=== PATIENT | male | born 1960 | race Hispanic/Latino ===

== ENCOUNTER 2020-02-11 15:32 | Emergency (ER) | payer OTHER ==
[~2020-02-11] VITALS: Ht 160 cm; Wt 75.0 kg
[2020-02-11 16:29] VITALS: BP 184/75
== END 2020-02-11 16:30 | disposition home or self-care (01) | DRG 605 ==
LOC: ED 15:32
PROC: 0HQGXZZ Repair Left Hand Skin, External Approach (ICD-10-PCS; principal; 2020-02-11)
DX: S61.412A Laceration without foreign body of left hand, initial encounter (principal); I10 Essential (primary) hypertension; W45.8XXA Other foreign body or object entering through skin, initial encounter; Y99.0 Civilian activity done for income or pay